=== PATIENT | male | born 1960 | race Caucasian/White ===

== ENCOUNTER 2022-02-12 10:50 | Inpatient (IN) ==
[2022-02-12] MEDS ORDERED: NITROGLYCERIN SL 0.4 MG TABLET SL PRN (10:57)
[2022-02-12] MEDS ORDERED: HEPARIN 5,000 UNIT/1 ML VIAL IV ONE (10:57)
[2022-02-12] MEDS ORDERED: HEPARIN 5,000 UNIT/1 ML VIAL ONE (10:57)
[2022-02-12 11:03] LABS: Basophils # 0.1 10*3/uL (0.0-0.2); Basophils % 0.7 % (0.0-0.8); Eosinophils # 0.3 10*3/uL (0.0-0.87); Hematocrit 46.8 VOL% (42.0-52.0); Immature Granulocytes % 0.4 %; Immature Granulocytes Absolute 0.05 #; Lymphocytes # 3.2 10*3/uL (1.4-4.0); Lymphocytes % 28.5 % (21.2-54.2); Mean Corpuscular HGB Conc 34.2 GM/DL (32-36); Mean Corpuscular Volume 90.3 FL (87-102); Mean Platelet Volume 9.6 FL (9.6-12.0); Monocytes # 0.8 10*3/uL (0.11-0.8); Monocytes % 6.8 % (1.7-12.7); Neutrophils % 60.6 % (38.7-73.9); Platelet Count 295 T/CUMM (130-400); Red Blood Count 5.18 MC/CUMM (3.8-5.5); Red Cell Distribution Width 13.3 % (9.3-17.3); White Blood Count 11.3 T/CUMM (4-12)
[2022-02-12] MEDS ORDERED: MIDAZOLAM 2 MG/2 ML VIAL ONE (11:14)
[2022-02-12] MEDS ORDERED: HYDROmorphone 1 MG/1 ML SYRINGE ONE (11:14)
[2022-02-12] MEDS ORDERED: ONDANSETRON 4 MG/2 ML VIAL IV PRN (11:17)
[2022-02-12 11:23] LABS: Calcium 9.4 MG/DL (8.5-10.1); Osmolality,Calculated 283.3 MOS/KG (273-304); Potassium 3.1 MMOL/L (3.5-5.1)
[2022-02-12 11:24] VITALS: BP 117/75
[2022-02-12] MEDS ORDERED: TIROFIBAN 5,000 MCG/100 ML PREMIX IV ONE (11:27)
[2022-02-12] MEDS ORDERED: SODIUM CHLORIDE 0.45% 1,000 ML IV SCH (11:30)
[2022-02-12] MEDS ORDERED: METOPROLOL SUCCINATE XL 25 MG TABLET PO ONE (12:01)
[2022-02-12] MEDS ORDERED: ROSUVASTATIN 20 MG TABLET PO ONE (12:02)
[2022-02-12] MEDS: ASPIRIN 325 MG TABLET PO STA ×2 (12:38→14:13)
[2022-02-12] MEDS: TICAGRELOR 90 MG TABLET PO STA ×2 (12:39→14:13)
[2022-02-12 12:55] LABS: CKMB % 6.5 %
[2022-02-12 13:05] LABS: High Sensitive Troponin I* 1558.9 ng/L (0-78)
[2022-02-12] MEDS ORDERED: NITROGLYCERIN DRIP 50 MG/250 ML BOTTLE IV PRN (13:44)
[2022-02-12] MEDS ORDERED: TIROFIBAN 5,000 MCG/100 ML PREMIX IV SCH (14:00)
[2022-02-12] MEDS ORDERED: POTASSIUM CHLORIDE 20 MEQ TABLET PO ONE (15:10)
[2022-02-12] MEDS ORDERED: ALUM/MAG/SIMETH/LIDO VISC 1:1 30 ML BOTTLE PO ONE (19:14)
[2022-02-12] MEDS: TICAGRELOR 90 MG TABLET PO SCH (21:01)
[2022-02-13 06:12] LABS: Basophils % 0.3 % (0.0-0.8); Eosinophils # 0.3 10*3/uL (0.0-0.87); Eosinophils % 2.2 % (0.00-10.9); Hematocrit 45.6 VOL% (42.0-52.0); Hemoglobin 15.4 GM/DL (14.0-18.0); Immature Granulocytes % 0.5 %; Immature Granulocytes Absolute 0.06 #; Lymphocytes # 1.8 10*3/uL (1.4-4.0); Lymphocytes % 14.1 % (21.2-54.2); Mean Corpuscular HGB Conc 33.8 GM/DL (32-36); Mean Corpuscular Volume 91.2 FL (87-102); Monocytes # 0.8 10*3/uL (0.11-0.8); Monocytes % 6.5 % (1.7-12.7); Neutrophils % 76.4 % (38.7-73.9); Platelet Count 248 T/CUMM (130-400); Red Cell Distribution Width 13.5 % (9.3-17.3)
[2022-02-13 06:22] LABS: Barbiturates Screen,Urine Negative (Negative); Benzodiazepines Screen,Urine Positive (Negative); Cannabinoid Screen,Urine Negative (Negative); Opiate Screen,Urine Negative (Negative); Phencyclidine Screen,Urine Negative (Negative)
[2022-02-13 06:41] LABS: Albumin 3.3 G/DL (3.4-5.0); Calcium 8.8 MG/DL (8.5-10.1); Osmolality,Calculated 273.7 MOS/KG (273-304); Risk Ratio 4.11; Thyroid Stimulating Hormone 1.3 uIU/ml (0.358-3.74); Total Protein 6.7 G/DL (6.4-8.2); VLDL Cholesterol 17.4 MG/DL
[2022-02-13 06:46] LABS: CKMB % 12.57 %
[2022-02-13 06:48] LABS: High Sensitive Troponin I* 36981.4 ng/L (0-78)
[2022-02-13] MEDS ORDERED: ROSUVASTATIN 20 MG TABLET PO SCH ×2 (09:00→21:00)
[2022-02-13] MEDS ORDERED: ASPIRIN EC 81 MG TABLET PO SCH (09:00)
[2022-02-13] MEDS ORDERED: METOPROLOL SUCCINATE XL 25 MG TABLET PO SCH (09:00)
[2022-02-13] MEDS: TICAGRELOR 90 MG TABLET PO SCH (10:05)
[2022-02-13] MEDS ORDERED: APIXABAN 5 MG TABLET PO SCH (10:30)
== END 2022-02-13 11:38 | disposition left against medical advice (07) | DRG 246 ==
LOC: N.ED 10:50 → N.CC 11:05
PROVIDERS: ADMIT Internal Medicine Cardiovascular Disease; ATTEND Internal Medicine Cardiovascular Disease